=== PATIENT | male | born 1945 | race African-American/Black ===

== ENCOUNTER 2016-10-16 12:03 | Emergency (ER) | payer MEDICARE ==
[~2016-10-16] VITALS: Ht 180.3 cm; Wt 112.0 kg
[~2016-10-16 12:03] MED LIST: AMLO10TA80 PO; AMLODIPINE; ASPI-1035 PO; ATEN-175; ATEN-42 PO; ATOR40TA70; CLOP75TA2 PO; FAMO20TA8 PO; FAMOTIDINE; FERR142T6 PO; GLIM2TAB2; GLIM2TAB2 PO; IRON; ISOS30TA; ISOS30TA47 PO; LIP40 PO; LOSA100T14 PO; LOSARTAN; METF10002; METF10002 PO; SITA100T6; SOTA80TA; SOTA80TA PO
[2016-10-16 19:56] VITALS: BP 149/89
== END 2016-10-16 20:36 | disposition home or self-care (01) ==
LOC: ER 12:04
DX: R51 Headache (principal); E11.9 Type 2 diabetes mellitus without complications; E78.00 Pure hypercholesterolemia, unspecified; I10 Essential (primary) hypertension; I25.2 Old myocardial infarction; Z95.5 Presence of coronary angioplasty implant and graft; Z79.82 Long term (current) use of aspirin
CPT/HCPCS: 70450; 99284

== ENCOUNTER → 2017-02-12 | Day surgery (SDC) | payer MEDICARE ==
[~2017-02-12] VITALS: Ht 180.3 cm; Wt 110.7 kg
[~2017-02-12] MED LIST changes: +APIX2.5T PO; -ASPI-1035 PO; +ASPI-1158 PO; +ASPIRIN/SOD BICARB/CITRIC ACID 324MG TAB EFF ONE; +CARV12.545 PO; +CLOP75TA16 PO; -CLOP75TA2 PO; +FENTANYL CITRATE/PF 50MCG/ML 2ML VIAL ONE; +HEPARIN SODIUM 1,000 UNIT/1ML VIAL IV ONE; +IODIXANOL 320MG/ML 100 ML BOTTLE IV ONE; -ISOS30TA; +ISOS30TA12; +LIDOCAINE HCL 1% 20ML VIAL (Pyxis) INJ ONE; +MIDAZOLAM HCL 2 MG/2 ML VIAL ONE; +SITA100T11; -SITA100T6; +ZOLP5TAB2 PO
== END | disposition home or self-care (01) ==
LOC: CCL 06:46
PROVIDERS: ATTEND Specialist
DX: I25.10 Atherosclerotic heart disease of native coronary artery without angina pectoris (principal); I73.9 Peripheral vascular disease, unspecified; G47.33 Obstructive sleep apnea (adult) (pediatric); I11.9 Hypertensive heart disease without heart failure; E66.9 Obesity, unspecified; I48.0 Paroxysmal atrial fibrillation; Z95.5 Presence of coronary angioplasty implant and graft; E78.00 Pure hypercholesterolemia, unspecified; Z53.9 Procedure and treatment not carried out, unspecified reason
CPT/HCPCS: 82962; J1644; J2250; J3010; J3490; Q9967

== ENCOUNTER 2017-02-14 08:20 | Day surgery (SDC) | payer MEDICARE ==
[~2017-02-14] VITALS: Ht 180.3 cm; Wt 110.7 kg
[~2017-02-14 08:20] MED LIST changes: -AMLODIPINE; -ASPI-1158 PO; -ASPIRIN/SOD BICARB/CITRIC ACID 324MG TAB EFF ONE; -ATEN-175; -ATOR40TA70; -CARV12.545 PO; -CLOP75TA16 PO; -FAMO20TA8 PO; -FAMOTIDINE; -FENTANYL CITRATE/PF 50MCG/ML 2ML VIAL ONE; -GLIM2TAB2; -HEPARIN SODIUM 1,000 UNIT/1ML VIAL IV ONE; -IODIXANOL 320MG/ML 100 ML BOTTLE IV ONE; -IRON; -ISOS30TA12; -LIDOCAINE HCL 1% 20ML VIAL (Pyxis) INJ ONE; -LOSARTAN; -METF10002; -MIDAZOLAM HCL 2 MG/2 ML VIAL ONE; -SITA100T11; -SOTA80TA; -ZOLP5TAB2 PO
[2017-02-14] MEDS ORDERED: ASPIRIN/SOD BICARB/CITRIC ACID 324MG TAB EFF ONE (09:19)
[2017-02-14] MEDS ORDERED: MIDAZOLAM HCL 2 MG/2 ML VIAL ONE ×2 (09:31→09:48)
[2017-02-14] MEDS ORDERED: FENTANYL CITRATE/PF 50MCG/ML 2ML VIAL ONE (09:32)
[2017-02-14] MEDS ORDERED: HEPARIN SODIUM 1,000 UNIT/1ML VIAL IV ONE (09:33)
[2017-02-14] MEDS ORDERED: ATROPINE SULFATE 0.1MG/ML 10ML DISP.SYRIN ONE (09:38)
[2017-02-14] MEDS ORDERED: IODIXANOL 320MG/ML 100 ML BOTTLE IV ONE (10:29)
[2017-02-14] MEDS ORDERED: ATROPINE SULFATE 1MG/10ML SYR IV PRN (11:00)
[2017-02-14] MEDS ORDERED: ONDANSETRON HCL 4MG/2ML VIAL IV PRN (11:00)
[2017-02-14] MEDS ORDERED: MORPHINE SULFATE 2 MG/ML CPJ (NOT FOR IM USE) IV PRN (11:00)
[2017-02-14] MEDS ORDERED: ACETAMINOPHEN 325MG TABLET PO PRN (11:00)
[2017-02-14] MEDS ORDERED: SODIUM CHLORIDE 0.45% 1,000 ML IV ONE (11:00)
[2017-02-14] MEDS ORDERED: NITROGLYCERIN 50MCG/ML 10ML VIAL (CATH LAB) IV ONE (14:17)
[2017-02-14] MEDS ORDERED: NICARDIPINE 100MCG/ML 10ML VIAL (CATH LAB) IV ONE (14:17)
== END 2017-02-14 13:55 | disposition home or self-care (01) ==
LOC: CCL 08:20
PROVIDERS: ATTEND Specialist
DX: I25.10 Atherosclerotic heart disease of native coronary artery without angina pectoris (principal); I73.89 Other specified peripheral vascular diseases
CPT/HCPCS: 82962; 93458; 99152; 99153; C1769; C1887; C1893; J1644; J2250; J3010; J3490; Q9967; J0461

== ENCOUNTER 2017-03-25 07:24 | Inpatient (IN) | payer MEDICARE ==
[~2017-03-25] VITALS: Ht 180.3 cm; Wt 99.8 kg
[2017-03-25] MEDS ORDERED: SODIUM CHLORIDE 0.9% 1,000 ML IV ONE (07:50)
[2017-03-25 08:29] LABS: BASOPHILS % 1.2 % (0.0-2.0); EOSINOPHILS % 1.4 % (0.0-5.0); HEMATOCRIT. 31.9 % (42.0-52.0); HEMOGLOBIN. 10.4 g/dL (14.0-18.0); LYMPHOCYTES % 9.3 % (20.0-50.0); MEAN CORPUSCULAR HEMOGLOBIN 29.7 pg (28.0-32.0); MEAN PLATELET VOLUME 8.9 fl (7.4-10.4); MONOCYTES % 4.9 % (2.0-8.0); NEUTROPHILS % 83.2 % (40.0-76.0); PLATELET 276 x1000/uL (130-400); RED CELL DISTRIBUTION WIDTH 15.7 % (11.6-14.6)
[2017-03-25 08:35] LABS: INR 1.2; PROTHROMBIN TIME 12.8 sec (9.4-11.6)
[2017-03-25 08:45] LABS: CARBON DIOXIDE 28 mEq/L (21-32); CHLORIDE 106 mEq/L (98-107); TROPONIN I 0.11 ng/mL (0.00-0.04)
[2017-03-25] MEDS ORDERED: DEXTROSE 50% WATER 50ML SYRINGE IV ONE ×2 (08:45→11:45)
[2017-03-25] MEDS ORDERED: PIPERACILLIN/TAZOBACTAM 3.375GM/50ML PREMIX IV ONE (09:45)
[2017-03-25] MEDS ORDERED: SODIUM CHLORIDE 0.9% 1000ML BAG (SEPSIS BOLUS) IV ONE (09:45)
[2017-03-25] MEDS ORDERED: ACETAMINOPHEN 325MG TABLET PO PRN (11:00)
[2017-03-25] MEDS ORDERED: MAGNESIUM/ALUMINUM HYDROXIDE/SIMETHICONE 30ML UDC PO PRN (11:00)
[2017-03-25] MEDS ORDERED: DOCUSATE SODIUM 100MG CAPSULE PO PRN (11:00)
[2017-03-25] MEDS ORDERED: ZOLPIDEM TARTRATE 5MG TABLET PO PRN (11:00)
[2017-03-25] MEDS ORDERED: GUAIFENESIN 200MG/10ML SUGAR FREE UDC PO PRN (11:00)
[2017-03-25] MEDS ORDERED: TRAMADOL 50MG TABLET PO PRN (11:00)
[2017-03-25] MEDS ORDERED: NA PHOS,M-B/NA PHOS,DI-BA ENEMA 118ML PR PRN (11:00)
[2017-03-25] MEDS ORDERED: ONDANSETRON HCL 4MG/2ML VIAL IV PRN (11:00)
[2017-03-25] MEDS ORDERED: CLONIDINE 0.1MG TABLET PO PRN ×2 (11:00)
[2017-03-25] MEDS ORDERED: NITROGLYCERIN 0.4MG TABLET SL SL PRN (11:00)
[2017-03-25] MEDS ORDERED: LEVOFLOXACIN 500MG PREMIX 100 ML IV SCH (11:00)
[2017-03-25] MEDS ORDERED: MORPHINE SULFATE 10 MG/ML CPJ IV PRN (11:00)
[2017-03-25] MEDS ORDERED: LORAZEPAM 2MG/ML CPJ IV PRN (11:00)
[2017-03-25] MEDS ORDERED: DIPHENHYDRAMINE 50MG/ML VIAL IV PRN (11:00)
[2017-03-25] MEDS ORDERED: IPRATROPIUM/ALBUTEROL 0.5-3(2.5)MG/3ML NEB INH PRN (11:00)
[2017-03-25] MEDS: VANCOMYCIN 1 G PREMIX 200 ML IV SCH (11:06)
[2017-03-25] MEDS ORDERED: DEXT 5%/0.45% NACL 1000ML 1,000 ML IV SCH (11:18)
[2017-03-25 11:45] LABS: GLUCOSE URINE NEGATIVE (NEGATIVE); KETONES URINE TRACE (NEGATIVE); LEUKOCYTE ESTERASE URINE NEGATIVE (NEGATIVE); NITRITE URINE NEGATIVE (NEGATIVE); OCCULT BLOOD URINE NEGATIVE (NEGATIVE); PROTEIN URINE TRACE (NEGATIVE); SPECIFIC GRAVITY URINE 1.018 (1.005-1.030)
[2017-03-25 11:54] LABS: CLARITY URINE CLEAR (CLEAR); COLOR URINE YELLOW (YELLOW)
[2017-03-25 11:58] LABS: *AMPHETAMINES SCREEN URINE NEGATIVE (NEGATIVE); *BARBITURATES SCREEN URINE NEGATIVE (NEGATIVE); *BENZODIAZEPINES SCREEN URINE NEGATIVE (NEGATIVE); *COCAINE SCREEN URINE NEGATIVE (NEGATIVE); CANNABINOID URINE SCREEN NEGATIVE (NEGATIVE); METHADONE URINE SCREEN NEGATIVE (NEGATIVE); OPIATES URINE SCREEN PRESUMTIVE POSITIVE (NEGATIVE); PHENCYCLIDINE URINE SCREEN NEGATIVE (NEGATIVE)
[2017-03-25 12:01] LABS: T4 FREE 1.29 ng/dL (0.76-1.46)
[2017-03-25 12:16] LABS: FOLIC ACID (FOLATE) SERUM 6.8 ng/mL (>5.38)
[2017-03-25 13:00] VITALS: BP 157/73
[2017-03-25] MEDS ORDERED: CARV12.545 PO (13:43)
[2017-03-25] MEDS ORDERED: ZOLP5TAB2 PO (13:43)
[2017-03-25] MEDS: CARVEDILOL 12.5MG TABLET PO SCH (15:26)
[2017-03-25] MEDS: AMIODARONE HCL 200 MG TABLET PO SCH ×2 (15:26→20:58)
[2017-03-25] MEDS: DEXT 5%/0.9% NACL 1,000 ML IV SCH (15:26)
[2017-03-25] MEDS: CEFTRIAXONE 1 G PREMIX 50 ML IV SCH (15:26)
[2017-03-25] MEDS: AMLODIPINE 2.5MG TABLET PO SCH ×2 (15:27→20:58)
[2017-03-25 16:00] VITALS: BP 145/69
[2017-03-25 16:58] LABS: CREATINE KINASE MB FRACTION 4.5 ng/mL (0.5-3.6); TROPONIN I 0.1 ng/mL (0.00-0.04)
[2017-03-25] MEDS ORDERED: APIXABAN 2.5 MG TABLET PO SCH (17:00)
[2017-03-25] MEDS ORDERED: DEXTROSE 50% WATER 50ML SYRINGE IV PRN (17:15)
[2017-03-25] MEDS: INSULIN LISPRO 100 UNITS/ML SUBCUT SCH ×2 (17:50→21:00)
[2017-03-25] MEDS: BLOOD SUGAR DIAGNOSTIC STRIP TEST SCH ×2 (17:51→21:34)
[2017-03-25] MEDS: LEVOFLOXACIN 500MG PREMIX 100 ML IV SCH (18:09)
[2017-03-25 20:00] VITALS: BP 122/52
[2017-03-25] MEDS: FAMOTIDINE 20MG/2ML VIAL IV SCH (20:57)
[2017-03-25] MEDS: ATORVASTATIN CALCIUM 10MG TABLET PO SCH (20:58)
[2017-03-25] MEDS ORDERED: METOPROLOL TARTRATE 25MG TABLET PO SCH (21:00)
[2017-03-26] VITALS: BP 125/68
[2017-03-26] MEDS: DEXT 5%/0.9% NACL 1,000 ML IV SCH ×2 (01:12→12:36)
[2017-03-26 04:00] VITALS: BP 130/71
[2017-03-26] MEDS: BLOOD SUGAR DIAGNOSTIC STRIP TEST SCH ×4 (06:51→21:21)
[2017-03-26] MEDS: INSULIN LISPRO 100 UNITS/ML SUBCUT SCH ×4 (07:42→21:00)
[2017-03-26 07:56] LABS: BASOPHILS % 1.2 % (0.0-2.0); EOSINOPHILS % 2.1 % (0.0-5.0); HEMATOCRIT. 30.6 % (42.0-52.0); HEMOGLOBIN. 9.9 g/dL (14.0-18.0); LYMPHOCYTES % 10.6 % (20.0-50.0); MEAN CORPUSCULAR HEMOGLOBIN 29.5 pg (28.0-32.0); MEAN CORPUSCULAR VOLUME 90.9 fL (80.0-94.0); MEAN PLATELET VOLUME 8.3 fl (7.4-10.4); MONOCYTES % 7.3 % (2.0-8.0); NEUTROPHILS % 78.8 % (40.0-76.0); PLATELET 302 x1000/uL (130-400); RED BLOOD CELL COUNT 3.37 mill/uL (4.7-6.1); RED CELL DISTRIBUTION WIDTH 15.7 % (11.6-14.6)
[2017-03-26 08:00] VITALS: BP 121/67
[2017-03-26 08:15] LABS: CARBON DIOXIDE 28 mEq/L (21-32); CHLORIDE 108 mEq/L (98-107); HDL CHOLESTEROL 32 mg/dL (40-59); LDL CHOLESTEROL 32 mg/dL (5-100); TROPONIN I 0.09 ng/mL (0.00-0.04)
[2017-03-26] MEDS: CARVEDILOL 12.5MG TABLET PO SCH ×2 (08:56→17:00)
[2017-03-26] MEDS: LOSARTAN POTASSIUM 100 MG TABLET PO SCH (08:56)
[2017-03-26] MEDS: FAMOTIDINE 20MG/2ML VIAL IV SCH ×2 (08:56→21:20)
[2017-03-26] MEDS: AMIODARONE HCL 200 MG TABLET PO SCH ×2 (08:57→21:21)
[2017-03-26] MEDS: AMLODIPINE 2.5MG TABLET PO SCH ×2 (08:57→21:00)
[2017-03-26] MEDS: ASPIRIN 325MG EC TABLET PO SCH (08:57)
[2017-03-26] MEDS ORDERED: CEFTRIAXONE 1 G PREMIX 50 ML IV SCH (09:00)
[2017-03-26] MEDS: VANCOMYCIN 1 G PREMIX 200 ML IV SCH (09:18)
[2017-03-26] MEDS ORDERED: SODIUM PHOS,M-BASIC-D-BASIC 15 MM in DEXT 5% WATER 245 ML IV SCH (11:00)
[2017-03-26 12:00] VITALS: BP 125/66
[2017-03-26] MEDS: REPAGLINIDE 1MG TABLET PO SCH ×2 (12:36→18:27)
[2017-03-26] MEDS: CEFTRIAXONE 1 G PREMIX 50 ML IV SCH (13:31)
[2017-03-26 16:00] VITALS: BP 93/50
[2017-03-26] MEDS: LEVOFLOXACIN 500MG PREMIX 100 ML IV SCH (17:42)
[2017-03-26 20:00] VITALS: BP 104/51
[2017-03-26] MEDS: ATORVASTATIN CALCIUM 10MG TABLET PO SCH (21:20)
[2017-03-27] VITALS: BP 138/60
[2017-03-27 04:00] VITALS: BP 124/56
[2017-03-27] MEDS: DEXT 5%/0.9% NACL 1,000 ML IV SCH ×3 (06:15→21:00)
[2017-03-27 07:15] LABS: BASOPHILS % 0.9 % (0.0-2.0); EOSINOPHILS % 3.7 % (0.0-5.0); HEMATOCRIT. 31.1 % (42.0-52.0); LYMPHOCYTES % 12.9 % (20.0-50.0); MEAN CORPUSCULAR HEMOGLOBIN 29.4 pg (28.0-32.0); MEAN CORPUSCULAR VOLUME 91.5 fL (80.0-94.0); MEAN PLATELET VOLUME 8.5 fl (7.4-10.4); NEUTROPHILS % 74.5 % (40.0-76.0); PLATELET 290 x1000/uL (130-400); RED CELL DISTRIBUTION WIDTH 15.7 % (11.6-14.6)
[2017-03-27] MEDS: BLOOD SUGAR DIAGNOSTIC STRIP TEST SCH ×4 (07:46→21:00)
[2017-03-27] MEDS: INSULIN LISPRO 100 UNITS/ML SUBCUT SCH ×4 (07:47→21:00)
[2017-03-27 08:00] VITALS: BP_SYST 125; BP_SYST 126; BP_DIAS 63; BP_DIAS 69
[2017-03-27] MEDS: AMLODIPINE 2.5MG TABLET PO SCH ×3 (08:18→21:58)
[2017-03-27] MEDS: LOSARTAN POTASSIUM 100 MG TABLET PO SCH (08:32)
[2017-03-27] MEDS: REPAGLINIDE 1MG TABLET PO SCH ×3 (08:32→17:59)
[2017-03-27] MEDS: FAMOTIDINE 20MG/2ML VIAL IV SCH ×3 (08:32→22:12)
[2017-03-27] MEDS: CARVEDILOL 12.5MG TABLET PO SCH ×2 (08:32→16:28)
[2017-03-27] MEDS: ASPIRIN 325MG EC TABLET PO SCH (08:32)
[2017-03-27] MEDS: AMIODARONE HCL 200 MG TABLET PO SCH ×2 (08:32→22:03)
[2017-03-27 09:59] LABS: CARBON DIOXIDE 27 mEq/L (21-32); CHLORIDE 110 mEq/L (98-107); PHOSPHORUS 2.5 mg/dL (2.5-4.9); TROPONIN I 0.09 ng/mL (0.00-0.04)
[2017-03-27 12:00] VITALS: BP 126/69
[2017-03-27] MEDS ORDERED: MAGNESIUM 2 G PREMIX 50 ML IV SCH (13:30)
[2017-03-27] MEDS: CEFTRIAXONE 1 G PREMIX 50 ML IV SCH (14:30)
[2017-03-27] MEDS: LEVOFLOXACIN 500MG PREMIX 100 ML IV SCH (14:51)
[2017-03-27] MEDS: MAGNESIUM OXIDE 400MG TABLET PO SCH ×2 (14:54→16:28)
[2017-03-27 16:00] VITALS: BP 121/69
[2017-03-27 20:00] VITALS: BP 108/75
[2017-03-27] MEDS: ATORVASTATIN CALCIUM 10MG TABLET PO SCH (22:03)
[2017-03-28] VITALS: BP 112/56
[2017-03-28] MEDS: DEXT 5%/0.9% NACL 1,000 ML IV SCH (03:15)
[2017-03-28 04:00] VITALS: BP 114/59
[2017-03-28] MEDS: BLOOD SUGAR DIAGNOSTIC STRIP TEST SCH (06:00)
[2017-03-28 06:28] LABS: BASOPHILS % 1.2 % (0.0-2.0); HEMATOCRIT. 28.8 % (42.0-52.0); HEMOGLOBIN. 9.5 g/dL (14.0-18.0); LYMPHOCYTES % 12.8 % (20.0-50.0); MEAN CORPUSCULAR HEMOGLOBIN 30.2 pg (28.0-32.0); MEAN CORPUSCULAR VOLUME 91.6 fL (80.0-94.0); MEAN PLATELET VOLUME 8.4 fl (7.4-10.4); MONOCYTES % 8.1 % (2.0-8.0); NEUTROPHILS % 72.9 % (40.0-76.0); PLATELET 230 x1000/uL (130-400); RED BLOOD CELL COUNT 3.15 mill/uL (4.7-6.1); RED CELL DISTRIBUTION WIDTH 15.6 % (11.6-14.6)
[2017-03-28 08:00] VITALS: BP 145/71
[2017-03-28] MEDS: INSULIN LISPRO 100 UNITS/ML SUBCUT SCH (08:10)
[2017-03-28] MEDS: MAGNESIUM OXIDE 400MG TABLET PO SCH (08:29)
[2017-03-28] MEDS: LOSARTAN POTASSIUM 100 MG TABLET PO SCH (08:29)
[2017-03-28] MEDS: AMLODIPINE 2.5MG TABLET PO SCH (08:29)
[2017-03-28] MEDS: ASPIRIN 325MG EC TABLET PO SCH (08:29)
[2017-03-28] MEDS: REPAGLINIDE 1MG TABLET PO SCH (08:29)
[2017-03-28] MEDS: CARVEDILOL 12.5MG TABLET PO SCH (08:29)
[2017-03-28] MEDS: AMIODARONE HCL 200 MG TABLET PO SCH (08:29)
[2017-03-28 08:33] LABS: CHLORIDE 111 mEq/L (98-107)
[2017-03-28 08:35] LABS: CARBON DIOXIDE 27 mEq/L (21-32); PHOSPHORUS 2.1 mg/dL (2.5-4.9)
[2017-03-28] MEDS ORDERED: MAGNESIUM OXIDE 400MG TABLET PO SCH (10:30)
[2017-03-28] MEDS ORDERED: POTASSIUM-SODIUM PHOSPHATE POWDER PACKET PO SCH (10:30)
[2017-03-28 11:48] VITALS: BP 119/72
== END 2017-03-28 12:40 | disposition home health service (06) | DRG 871 ==
LOC: ENRESERV 09:43 → EDBEDREQTM 10:05 → EDBEDREQ 10:05 → ER 11:03 → 7WST 11:04
PROVIDERS: ADMIT Specialist; ATTEND Internal Medicine
DX: A41.9 Sepsis, unspecified organism (principal); N17.0 Acute kidney failure with tubular necrosis; E44.0 Moderate protein-calorie malnutrition; E11.51 Type 2 diabetes mellitus with diabetic peripheral angiopathy without gangrene; E11.649 Type 2 diabetes mellitus with hypoglycemia without coma; I48.0 Paroxysmal atrial fibrillation; I42.0 Dilated cardiomyopathy; E11.319 Type 2 diabetes mellitus with unspecified diabetic retinopathy without macular edema; I11.0 Hypertensive heart disease with heart failure; D50.9 Iron deficiency anemia, unspecified; E66.9 Obesity, unspecified; E78.00 Pure hypercholesterolemia, unspecified; E78.5 Hyperlipidemia, unspecified; E86.0 Dehydration; G47.33 Obstructive sleep apnea (adult) (pediatric); I25.10 Atherosclerotic heart disease of native coronary artery without angina pectoris; I25.5 Ischemic cardiomyopathy; I50.9 Heart failure, unspecified; Z79.84 Long term (current) use of oral hypoglycemic drugs; Z82.49 Family history of ischemic heart disease and other diseases of the circulatory system; Z87.891 Personal history of nicotine dependence; Z95.1 Presence of aortocoronary bypass graft; I25.2 Old myocardial infarction; Z95.5 Presence of coronary angioplasty implant and graft; Z68.30 Body mass index [BMI] 30.0-30.9, adult; Z88.8 Allergy status to other drugs, medicaments and biological substances; Z79.899 Other long term (current) drug therapy
CPT/HCPCS: 36415; 71010; 76700; 80048; 80053; 80061; 80305; 81001; 82533; 82550; 82553; 82607; 82746; 82962; 83036; 83540; 83550; 83605; 83735; 83880; 84100; 84439; 84443; 84484; 84681; 85025; 85610; 87040; 87086; 93005; 93306; 93970; 93971; 96361; 96365; 96366; 97162; 97166; 99291; J0696; J1956; J2543; J3370; J3475; J3490; J7030; J7042; J7060

== ENCOUNTER 2018-01-10 09:35 | Inpatient (IN) | payer MEDICARE ==
[~2018-01-10] VITALS: Ht 180.3 cm; Wt 103.2 kg
[~2018-01-10 09:35] MED LIST changes: -ATEN-42 PO; +CARV12.545 PO; -FERR142T6 PO; -ISOS30TA47 PO; -LOSA100T14 PO; -METF10002 PO; +METF10004 PO; -SOTA80TA PO; +ZOLP5TAB2 PO
[2018-01-10 11:40] VITALS: BP 127/57
[2018-01-10] MEDS ORDERED: LOSA50TA20 MT (12:05)
[2018-01-10] MEDS ORDERED: FERR236T3 MT (12:05)
[2018-01-10] MEDS ORDERED: BUME1TAB4 MT (12:05)
[2018-01-10] MEDS ORDERED: REPA2TAB8 MT (12:05)
[2018-01-10] MEDS ORDERED: AMI2 MT (12:05)
[2018-01-10] MEDS ORDERED: ASPI-1159 MT (12:05)
[2018-01-10 12:08] VITALS: BP 127/57
[2018-01-10] MEDS ORDERED: DEXTROSE 50% WATER 50ML SYRINGE IV PRN (13:00)
[2018-01-10] MEDS: FUROSEMIDE 40MG/4ML VIAL IVP SCH ×2 (15:01→18:05)
[2018-01-10] MEDS: LOSARTAN POTASSIUM 25 MG TABLET PO SCH ×2 (15:01→21:24)
[2018-01-10] MEDS: ASPIRIN 81MG EC TABLET PO SCH (15:01)
[2018-01-10 16:00] VITALS: BP 132/65
[2018-01-10 17:28] LABS: CHLORIDE 107 mEq/L (98-107)
[2018-01-10] MEDS: BLOOD SUGAR DIAGNOSTIC STRIP TEST SCH ×2 (17:28→21:19)
[2018-01-10] MEDS: INSULIN LISPRO 100 UNITS/ML SUBCUT SCH ×2 (17:28→21:31)
[2018-01-10 17:29] LABS: BASOPHILS % 0.8 % (0.0-2.0); EOSINOPHILS % 2.2 % (0.0-5.0); HEMATOCRIT. 30.9 % (42.0-52.0); HEMOGLOBIN. 10.1 g/dL (14.0-18.0); LYMPHOCYTES % 14.7 % (20.0-50.0); MEAN CORPUSCULAR HEMOGLOBIN 30.2 pg (28.0-32.0); MEAN CORPUSCULAR VOLUME 92.1 fL (80.0-94.0); MEAN PLATELET VOLUME 8.5 fl (7.4-10.4); MONOCYTES % 6.1 % (2.0-8.0); NEUTROPHILS % 76.2 % (40.0-76.0); PLATELET 91 x1000/uL (130-400); RED BLOOD CELL COUNT 3.36 mill/uL (4.7-6.1); RED CELL DISTRIBUTION WIDTH 22.2 % (11.6-14.6)
[2018-01-10 17:37] LABS: CREATINE KINASE 48 IU/L (39-308)
[2018-01-10 17:43] LABS: CREATINE KINASE MB FRACTION 1.4 ng/mL (0.5-3.6)
[2018-01-10 20:00] VITALS: BP 133/67
[2018-01-10 21:02] LABS: PLATELET ESTIMATE DECREASED
[2018-01-10] MEDS: CARVEDILOL 6.25 MG TABLET PO SCH (21:23)
[2018-01-11] VITALS: BP 122/54
[2018-01-11 04:00] VITALS: BP 134/56
[2018-01-11] MEDS: BLOOD SUGAR DIAGNOSTIC STRIP TEST SCH ×4 (06:39→21:34)
[2018-01-11] MEDS: FUROSEMIDE 40MG/4ML VIAL IVP SCH ×2 (06:43→17:36)
[2018-01-11] MEDS: INSULIN LISPRO 100 UNITS/ML SUBCUT SCH ×4 (06:53→21:31)
[2018-01-11 07:19] LABS: BASOPHILS % 0.7 % (0.0-2.0); EOSINOPHILS % 3.9 % (0.0-5.0); HEMATOCRIT. 30.5 % (42.0-52.0); HEMOGLOBIN. 10.1 g/dL (14.0-18.0); LYMPHOCYTES % 14.5 % (20.0-50.0); MEAN CORPUSCULAR HEMOGLOBIN 30.4 pg (28.0-32.0); MEAN CORPUSCULAR VOLUME 92.1 fL (80.0-94.0); MEAN PLATELET VOLUME 9.2 fl (7.4-10.4); MONOCYTES % 6.9 % (2.0-8.0); PLATELET 135 x1000/uL (130-400); RED BLOOD CELL COUNT 3.32 mill/uL (4.7-6.1); RED CELL DISTRIBUTION WIDTH 21.6 % (11.6-14.6)
[2018-01-11 07:39] LABS: CHLORIDE 108 mEq/L (98-107)
[2018-01-11 08:04] LABS: CREATINE KINASE MB FRACTION 1.1 ng/mL (0.5-3.6); HDL CHOLESTEROL 22 mg/dL (40-59); LDL CHOLESTEROL 104 mg/dL (5-100)
[2018-01-11 08:05] LABS: CREATINE KINASE 34 IU/L (39-308)
[2018-01-11] MEDS: LOSARTAN POTASSIUM 25 MG TABLET PO SCH ×2 (08:59→21:26)
[2018-01-11] MEDS: ASPIRIN 81MG EC TABLET PO SCH (08:59)
[2018-01-11] MEDS: CARVEDILOL 6.25 MG TABLET PO SCH ×2 (08:59→21:27)
[2018-01-11 12:00] VITALS: BP 114/78
[2018-01-11 16:00] VITALS: BP 134/70
[2018-01-11 20:00] VITALS: BP 118/46
[2018-01-11] MEDS: GUAIFENESIN-DM 200MG-20MG/10ML UDC PO PRN (21:26)
[2018-01-12] VITALS: BP 131/49
[2018-01-12] MEDS: GUAIFENESIN-DM 200MG-20MG/10ML UDC PO PRN ×2 (01:41→20:51)
[2018-01-12 04:00] VITALS: BP 132/53
[2018-01-12] MEDS: BLOOD SUGAR DIAGNOSTIC STRIP TEST SCH ×4 (06:14→20:57)
[2018-01-12] MEDS: FUROSEMIDE 40MG/4ML VIAL IVP SCH ×2 (06:15→16:49)
[2018-01-12] MEDS: INSULIN LISPRO 100 UNITS/ML SUBCUT SCH ×4 (07:26→21:39)
[2018-01-12 08:00] VITALS: BP 143/64
[2018-01-12] MEDS: LOSARTAN POTASSIUM 25 MG TABLET PO SCH ×2 (09:26→20:55)
[2018-01-12] MEDS: CARVEDILOL 6.25 MG TABLET PO SCH ×2 (09:26→20:52)
[2018-01-12] MEDS: ASPIRIN 81MG EC TABLET PO SCH (09:26)
[2018-01-12 12:00] VITALS: BP 124/57
[2018-01-12 13:12] LABS: CHLORIDE 105 mEq/L (98-107)
[2018-01-12 16:00] VITALS: BP 143/66
[2018-01-12] MEDS ORDERED: POTASSIUM CHLORIDE 20MEQ TABLET SR PO NR (18:06)
[2018-01-12 20:00] VITALS: BP 121/50
[2018-01-13] VITALS: BP 132/79
[2018-01-13 04:00] VITALS: BP 132/54
[2018-01-13] MEDS: FUROSEMIDE 40MG/4ML VIAL IVP SCH ×2 (06:29→17:45)
[2018-01-13] MEDS: INSULIN LISPRO 100 UNITS/ML SUBCUT SCH ×4 (06:32→20:38)
[2018-01-13] MEDS: BLOOD SUGAR DIAGNOSTIC STRIP TEST SCH ×4 (06:32→20:33)
[2018-01-13 07:30] LABS: CHLORIDE 108 mEq/L (98-107)
[2018-01-13 07:56] VITALS: BP 127/63
[2018-01-13] MEDS: ASPIRIN 81MG EC TABLET PO SCH (09:10)
[2018-01-13] MEDS: LOSARTAN POTASSIUM 25 MG TABLET PO SCH ×2 (09:10→20:33)
[2018-01-13] MEDS: CARVEDILOL 6.25 MG TABLET PO SCH ×2 (09:11→20:32)
[2018-01-13 12:30] VITALS: BP 120/67
[2018-01-13] MEDS ORDERED: POTASSIUM CHLORIDE 20MEQ TABLET SR PO NR (12:30)
[2018-01-13] MEDS: GUAIFENESIN-DM 200MG-20MG/10ML UDC PO PRN ×2 (12:34→17:45)
[2018-01-13] MEDS ORDERED: FUROSEMIDE 40MG/4ML VIAL IVP SCH (15:00)
[2018-01-13] MEDS: AMIODARONE HCL 200 MG TABLET PO SCH (15:29)
[2018-01-13] MEDS: ENOXAPARIN 40MG/0.4ML SYR SUBCUT SCH (15:30)
[2018-01-13 16:30] VITALS: BP 141/61
[2018-01-13] MEDS: POTASSIUM CHLORIDE 20MEQ TABLET SR PO SCH (17:00)
[2018-01-13 20:00] VITALS: BP 133/53
[2018-01-13] MEDS: GUAIFENESIN 600MG ER TABLET PO SCH (20:32)
[2018-01-14] VITALS: BP 121/50
[2018-01-14] MEDS: ZOLPIDEM TARTRATE 5MG TABLET PO PRN ×2 (00:26→22:17)
[2018-01-14 04:00] VITALS: BP 117/75
[2018-01-14] MEDS: BLOOD SUGAR DIAGNOSTIC STRIP TEST SCH ×4 (06:22→21:00)
[2018-01-14] MEDS: FUROSEMIDE 40MG/4ML VIAL IVP SCH ×3 (06:33→17:53)
[2018-01-14 06:46] LABS: BASOPHILS % 0.6 % (0.0-2.0); EOSINOPHILS % 2.8 % (0.0-5.0); HEMATOCRIT. 32.9 % (42.0-52.0); HEMOGLOBIN. 10.8 g/dL (14.0-18.0); LYMPHOCYTES % 14.4 % (20.0-50.0); MEAN CORPUSCULAR HEMOGLOBIN 30.7 pg (28.0-32.0); MEAN CORPUSCULAR VOLUME 93.6 fL (80.0-94.0); MEAN PLATELET VOLUME 8.9 fl (7.4-10.4); MONOCYTES % 5.7 % (2.0-8.0); NEUTROPHILS % 76.5 % (40.0-76.0); PLATELET 158 x1000/uL (130-400); RED BLOOD CELL COUNT 3.51 mill/uL (4.7-6.1); RED CELL DISTRIBUTION WIDTH 22.2 % (11.6-14.6)
[2018-01-14 06:55] LABS: CHLORIDE 108 mEq/L (98-107)
[2018-01-14] MEDS: INSULIN LISPRO 100 UNITS/ML SUBCUT SCH ×4 (07:25→21:00)
[2018-01-14 08:30] VITALS: BP 127/68
[2018-01-14] MEDS: GUAIFENESIN 600MG ER TABLET PO SCH ×3 (09:05→22:30)
[2018-01-14] MEDS: POTASSIUM CHLORIDE 20MEQ TABLET SR PO SCH ×2 (09:05→17:54)
[2018-01-14] MEDS: AMIODARONE HCL 200 MG TABLET PO SCH (09:06)
[2018-01-14] MEDS: CARVEDILOL 6.25 MG TABLET PO SCH (09:06)
[2018-01-14] MEDS: LOSARTAN POTASSIUM 25 MG TABLET PO SCH ×2 (09:06→21:00)
[2018-01-14] MEDS: ENOXAPARIN 40MG/0.4ML SYR SUBCUT SCH (09:06)
[2018-01-14] MEDS: ASPIRIN 81MG EC TABLET PO SCH (09:08)
[2018-01-14] MEDS ORDERED: ONDANSETRON HCL 4MG/2ML VIAL IV PRN (11:00)
[2018-01-14] MEDS ORDERED: POTASSIUM CHLORIDE 20MEQ TABLET SR PO SCH (11:00)
[2018-01-14] MEDS ORDERED: MAGNESIUM 2 G PREMIX 50 ML IV SCH (12:00)
[2018-01-14] MEDS ORDERED: MAGNESIUM SULFATE 2 GM in DEXTROSE 5% WATER 50 ML IV SCH (12:00)
[2018-01-14 12:30] VITALS: BP 140/59
[2018-01-14 15:34] VITALS: BP 140/73
[2018-01-14] MEDS ORDERED: PANTOPRAZOLE 40MG DR TABLET PO NR (16:15)
[2018-01-14 16:53] LABS: T4 FREE 1.73 ng/dL (0.76-1.46)
[2018-01-14 20:00] VITALS: BP 135/70
[2018-01-14] MEDS: CARVEDILOL 3.125 MG TABLET PO SCH (21:00)
[2018-01-14] MEDS: FAMOTIDINE 20MG/2ML VIAL IV SCH (22:17)
[2018-01-14] MEDS: FLUTICASONE PROPIONATE 50MCG/SPRAY BOTTLE BOTHNSTRLS SCH (22:18)
[2018-01-15] VITALS (7 sets, daily range): BP systolic 114–143; BP diastolic 51–70
[2018-01-15] MEDS: BLOOD SUGAR DIAGNOSTIC STRIP TEST SCH ×4 (07:08→20:56)
[2018-01-15] MEDS ORDERED: PANTOPRAZOLE 40MG DR TABLET PO SCH (07:10)
[2018-01-15 07:42] LABS: CHLORIDE 109 mEq/L (98-107)
[2018-01-15] MEDS ORDERED: IPRATROPIUM/ALBUTEROL 0.5-3(2.5)MG/3ML NEB HHN PRN (08:30)
[2018-01-15 08:47] LABS: BASOPHILS % 0.6 % (0.0-2.0); EOSINOPHILS % 2.6 % (0.0-5.0); HEMATOCRIT. 31.8 % (42.0-52.0); HEMOGLOBIN. 10.4 g/dL (14.0-18.0); LYMPHOCYTES % 14.3 % (20.0-50.0); MEAN CORPUSCULAR HEMOGLOBIN 30.6 pg (28.0-32.0); MEAN CORPUSCULAR VOLUME 93.3 fL (80.0-94.0); MONOCYTES % 5.9 % (2.0-8.0); NEUTROPHILS % 76.6 % (40.0-76.0); RED BLOOD CELL COUNT 3.41 mill/uL (4.7-6.1); RED CELL DISTRIBUTION WIDTH 21.6 % (11.6-14.6)
[2018-01-15] MEDS ORDERED: GUAIFENESIN 600MG ER TABLET PO SCH (09:00)
[2018-01-15] MEDS: FUROSEMIDE 40MG/4ML VIAL IVP SCH ×3 (09:24→17:21)
[2018-01-15] MEDS: CARVEDILOL 3.125 MG TABLET PO SCH ×2 (09:24→20:26)
[2018-01-15] MEDS: LOSARTAN POTASSIUM 25 MG TABLET PO SCH ×2 (09:24→20:25)
[2018-01-15] MEDS: POTASSIUM CHLORIDE 20MEQ TABLET SR PO SCH ×2 (09:25→17:21)
[2018-01-15] MEDS: ENOXAPARIN 40MG/0.4ML SYR SUBCUT SCH (09:25)
[2018-01-15] MEDS: ASPIRIN 81MG EC TABLET PO SCH (09:25)
[2018-01-15] MEDS: AZITHROMYCIN 500 MG in DEXT 5% WATER 250 ML IV SCH ×2 (10:00→14:58)
[2018-01-15] MEDS: CEFTRIAXONE 2 G in DEXTROSE 5% WATER 50 ML IV SCH (10:28)
[2018-01-15] MEDS: FAMOTIDINE 20MG/2ML VIAL IV SCH ×2 (10:29→20:25)
[2018-01-15] MEDS: FLUTICASONE PROPIONATE 50MCG/SPRAY BOTTLE BOTHNSTRLS SCH ×2 (10:32→20:25)
[2018-01-15 11:01] LABS: CLARITY URINE CLEAR (CLEAR); COLOR URINE DARK YELLOW (YELLOW); KETONES URINE NEGATIVE (NEGATIVE); LEUKOCYTE ESTERASE URINE NEGATIVE (NEGATIVE); NITRITE URINE NEGATIVE (NEGATIVE); OCCULT BLOOD URINE NEGATIVE (NEGATIVE); PH URINE 5.5 (4.5-8.0); PROTEIN URINE NEGATIVE (NEGATIVE); SPECIFIC GRAVITY URINE 1.021 (1.005-1.030); UROBILINOGEN URINE >8.0 E.U./dL (0.2-1.0)
[2018-01-15] MEDS: INSULIN LISPRO 100 UNITS/ML SUBCUT SCH ×3 (13:18→20:56)
[2018-01-15] MEDS ORDERED: LIDOCAINE HCL 1% 20ML VIAL (Pyxis) INJ ONE (13:29)
[2018-01-15] MEDS: IPRATROPIUM/ALBUTEROL 0.5-3(2.5)MG/3ML NEB HHN SCH ×3 (14:41→21:05)
[2018-01-15] MEDS: ACETYLCYSTEINE 100MG/ML 10% VIAL 4ML INH SCH (14:42)
[2018-01-15 16:06] LABS: *AMPHETAMINES SCREEN URINE NEGATIVE (NEGATIVE); *BARBITURATES SCREEN URINE NEGATIVE (NEGATIVE); CANNABINOID URINE SCREEN NEGATIVE (NEGATIVE); OPIATES URINE SCREEN NEGATIVE (NEGATIVE); PHENCYCLIDINE URINE SCREEN NEGATIVE (NEGATIVE)
[2018-01-15 16:07] LABS: *BENZODIAZEPINES SCREEN URINE NEGATIVE (NEGATIVE); *COCAINE SCREEN URINE NEGATIVE (NEGATIVE); METHADONE URINE SCREEN NEGATIVE (NEGATIVE)
[2018-01-15] MEDS: ZOLPIDEM TARTRATE 5MG TABLET PO PRN (20:25)
[2018-01-15] MEDS: ENOXAPARIN 30MG/0.3ML SYR SUBCUT SCH (20:27)
[2018-01-15] MEDS: GUAIFENESIN 600MG ER TABLET PO SCH (20:41)
[2018-01-16] VITALS: BP 135/62
[2018-01-16] MEDS: ACETYLCYSTEINE 100MG/ML 10% VIAL 4ML INH SCH ×3 (00:41→15:49)
[2018-01-16] MEDS: IPRATROPIUM/ALBUTEROL 0.5-3(2.5)MG/3ML NEB HHN SCH ×5 (00:41→20:55)
[2018-01-16] MEDS: ACETAMINOPHEN 325MG TABLET PO PRN ×2 (03:59→21:17)
[2018-01-16 04:00] VITALS: BP 141/65
[2018-01-16] MEDS: INSULIN LISPRO 100 UNITS/ML SUBCUT SCH ×4 (06:03→21:00)
[2018-01-16] MEDS: BLOOD SUGAR DIAGNOSTIC STRIP TEST SCH ×4 (06:03→21:30)
[2018-01-16 08:00] VITALS: BP 135/63
[2018-01-16] MEDS: POTASSIUM CHLORIDE 20MEQ TABLET SR PO SCH ×2 (09:02→16:33)
[2018-01-16] MEDS: ASPIRIN 81MG EC TABLET PO SCH (09:02)
[2018-01-16] MEDS: CARVEDILOL 3.125 MG TABLET PO SCH ×2 (09:02→21:18)
[2018-01-16] MEDS: FAMOTIDINE 20MG/2ML VIAL IV SCH ×2 (09:02→21:16)
[2018-01-16] MEDS: FUROSEMIDE 40MG/4ML VIAL IVP SCH ×3 (09:02→16:33)
[2018-01-16] MEDS: LOSARTAN POTASSIUM 25 MG TABLET PO SCH ×2 (09:02→21:17)
[2018-01-16] MEDS: CEFTRIAXONE 2 G in DEXTROSE 5% WATER 50 ML IV SCH (09:02)
[2018-01-16] MEDS: FLUTICASONE PROPIONATE 50MCG/SPRAY BOTTLE BOTHNSTRLS SCH ×2 (09:02→21:18)
[2018-01-16] MEDS: ENOXAPARIN 30MG/0.3ML SYR SUBCUT SCH ×2 (09:03→21:16)
[2018-01-16] MEDS: GUAIFENESIN 600MG ER TABLET PO SCH ×2 (09:05→21:17)
[2018-01-16] MEDS: AZITHROMYCIN 500 MG in DEXT 5% WATER 250 ML IV SCH (10:54)
[2018-01-16 11:35] VITALS: BP 138/65
[2018-01-16] MEDS ORDERED: POTASSIUM CHLORIDE 20MEQ TABLET SR PO NR (11:45)
[2018-01-16] MEDS ORDERED: MAGNESIUM 1 G PREMIX 100 ML IV NR (13:00)
[2018-01-16] MEDS: SPIRONOLACTONE 25MG TABLET PO SCH (13:22)
[2018-01-16 14:47] LABS: BASOPHILS % 0.7 % (0.0-2.0); EOSINOPHILS % 2.1 % (0.0-5.0); HEMATOCRIT. 32.7 % (42.0-52.0); HEMOGLOBIN. 10.6 g/dL (14.0-18.0); LYMPHOCYTES % 12.1 % (20.0-50.0); MEAN CORPUSCULAR HEMOGLOBIN 30.5 pg (28.0-32.0); MEAN PLATELET VOLUME 8.3 fl (7.4-10.4); MONOCYTES % 5.9 % (2.0-8.0); NEUTROPHILS % 79.2 % (40.0-76.0); PLATELET 149 x1000/uL (130-400); RED BLOOD CELL COUNT 3.48 mill/uL (4.7-6.1); RED CELL DISTRIBUTION WIDTH 21.9 % (11.6-14.6)
[2018-01-16 14:50] LABS: CHLORIDE 106 mEq/L (98-107)
[2018-01-16 16:00] VITALS: BP 120/69
[2018-01-16 20:00] VITALS: BP 144/63
[2018-01-16 20:12] LABS: TOTAL IRON BINDING CAPACITY 179 ug/dL (250-450)
[2018-01-16 20:34] LABS: FERRITIN 69 ng/mL (22-322)
[2018-01-16 20:41] LABS: VITAMIN B12 SERUM >2000 pg/mL pg/mL (211-911)
[2018-01-16 20:45] LABS: HEPATITIS B SURFACE ANTIGEN NEGATIVE
[2018-01-16 21:13] LABS: HEPATITIS B CORE AB IGM NEGATIVE
[2018-01-16 21:15] LABS: HEPATITIS A AB IGM NEGATIVE (NEGATIVE)
[2018-01-16] MEDS: ZOLPIDEM TARTRATE 5MG TABLET PO PRN (21:17)
[2018-01-17] VITALS: BP 135/70
[2018-01-17] MEDS: IPRATROPIUM/ALBUTEROL 0.5-3(2.5)MG/3ML NEB HHN SCH ×3 (01:00→08:31)
[2018-01-17 04:00] VITALS: BP 142/64
[2018-01-17] MEDS: ACETYLCYSTEINE 100MG/ML 10% VIAL 4ML INH SCH ×2 (04:21→08:31)
[2018-01-17] MEDS: INSULIN LISPRO 100 UNITS/ML SUBCUT SCH ×2 (07:03→12:40)
[2018-01-17] MEDS: BLOOD SUGAR DIAGNOSTIC STRIP TEST SCH ×2 (07:04→12:41)
[2018-01-17 07:26] LABS: CHLORIDE 109 mEq/L (98-107)
[2018-01-17 07:30] VITALS: BP 137/62
[2018-01-17 07:40] LABS: BASOPHILS % 0.6 % (0.0-2.0); EOSINOPHILS % 2.7 % (0.0-5.0); HEMATOCRIT. 30.3 % (42.0-52.0); HEMOGLOBIN. 9.8 g/dL (14.0-18.0); LYMPHOCYTES % 13.2 % (20.0-50.0); MEAN CORPUSCULAR HEMOGLOBIN 30.5 pg (28.0-32.0); MEAN PLATELET VOLUME 8.1 fl (7.4-10.4); MONOCYTES % 5.6 % (2.0-8.0); NEUTROPHILS % 77.9 % (40.0-76.0); PLATELET 94 x1000/uL (130-400); RED BLOOD CELL COUNT 3.22 mill/uL (4.7-6.1)
[2018-01-17] MEDS ORDERED: POTASSIUM CHLORIDE 20MEQ TABLET SR PO NR (09:15)
[2018-01-17] MEDS: FUROSEMIDE 40MG/4ML VIAL IVP SCH (09:34)
[2018-01-17] MEDS: POTASSIUM CHLORIDE 20MEQ TABLET SR PO SCH (09:35)
[2018-01-17] MEDS: ASPIRIN 81MG EC TABLET PO SCH (09:35)
[2018-01-17] MEDS: GUAIFENESIN 600MG ER TABLET PO SCH (09:35)
[2018-01-17] MEDS: LOSARTAN POTASSIUM 25 MG TABLET PO SCH (09:35)
[2018-01-17] MEDS: CARVEDILOL 3.125 MG TABLET PO SCH (09:35)
[2018-01-17] MEDS: SPIRONOLACTONE 25MG TABLET PO SCH (09:35)
[2018-01-17] MEDS: FAMOTIDINE 20MG/2ML VIAL IV SCH (09:35)
[2018-01-17] MEDS: CEFTRIAXONE 2 G in DEXTROSE 5% WATER 50 ML IV SCH (09:36)
[2018-01-17] MEDS: ENOXAPARIN 30MG/0.3ML SYR SUBCUT SCH (09:36)
[2018-01-17] MEDS: FLUTICASONE PROPIONATE 50MCG/SPRAY BOTTLE BOTHNSTRLS SCH (09:38)
[2018-01-17] MEDS ORDERED: MAGNESIUM SULFATE 2 GM in DEXTROSE 5% WATER 50 ML IV NR (10:00)
[2018-01-17] MEDS ORDERED: POTASSIUM CHLORIDE 20MEQ TABLET SR PO ONE (10:30)
[2018-01-17] MEDS ORDERED: MAGNESIUM 2 G PREMIX 50 ML IV ONE (10:30)
[2018-01-17 12:00] VITALS: BP 142/66
[2018-01-17] MEDS ORDERED: ASCORBIC ACID 500 MG TABLET PO SCH (12:00)
[2018-01-17] MEDS ORDERED: FERROUS SULFATE 325MG TABLET PO SCH (12:40)
[2018-01-17 12:43] VITALS: BP 142/66
== END 2018-01-17 16:32 | disposition home or self-care (01) | DRG 871 ==
LOC: 8WST 09:35
PROVIDERS: ADMIT Specialist; ATTEND Specialist
PROC: 02HV33Z Insertion of Infusion Device into Superior Vena Cava, Percutaneous Approach (ICD-10-PCS; principal; 2018-01-15)
PROC: B5181ZA Fluoroscopy of Superior Vena Cava using Low Osmolar Contrast, Guidance (ICD-10-PCS; 2018-01-15)
PROC: B548ZZA Ultrasonography of Superior Vena Cava, Guidance (ICD-10-PCS; 2018-01-15)
DX: A41.9 Sepsis, unspecified organism (principal); J96.00 Acute respiratory failure, unspecified whether with hypoxia or hypercapnia; E43 Unspecified severe protein-calorie malnutrition; I50.33 Acute on chronic diastolic (congestive) heart failure; J18.1 Lobar pneumonia, unspecified organism; I48.0 Paroxysmal atrial fibrillation; G47.33 Obstructive sleep apnea (adult) (pediatric); I65.29 Occlusion and stenosis of unspecified carotid artery; I11.0 Hypertensive heart disease with heart failure; E87.6 Hypokalemia; I25.10 Atherosclerotic heart disease of native coronary artery without angina pectoris; D50.9 Iron deficiency anemia, unspecified; D69.6 Thrombocytopenia, unspecified; E78.00 Pure hypercholesterolemia, unspecified; E78.5 Hyperlipidemia, unspecified; E11.51 Type 2 diabetes mellitus with diabetic peripheral angiopathy without gangrene; J44.9 Chronic obstructive pulmonary disease, unspecified; R74.0 Nonspecific elevation of levels of transaminase and lactic acid dehydrogenase [LDH]; K21.9 Gastro-esophageal reflux disease without esophagitis; E83.42 Hypomagnesemia; I25.5 Ischemic cardiomyopathy; Z86.73 Personal history of transient ischemic attack (TIA), and cerebral infarction without residual deficits; Z95.5 Presence of coronary angioplasty implant and graft; Z87.891 Personal history of nicotine dependence; Z95.1 Presence of aortocoronary bypass graft; Z79.899 Other long term (current) drug therapy; Z88.8 Allergy status to other drugs, medicaments and biological substances; Z79.82 Long term (current) use of aspirin; Z68.31 Body mass index [BMI] 31.0-31.9, adult
CPT/HCPCS: 36415; 36569; 71045; 71250; 76700; 76937; 77001; 78582; 80048; 80053; 80061; 80305; 81003; 82550; 82553; 82607; 82728; 82746; 82962; 83540; 83550; 83735; 83880; 84439; 84443; 84481; 84484; 85025; 85379; 86705; 86709; 86803; 87086; 87340; 93005; 93970; 94640; 97110; 97116; 97162; A9558; C1725; J0456; J0696; J1650; J1815; J1940; J3475; J3490; J7030; J7050; J7060; J7608; J7620

== ENCOUNTER → 2018-02-13 | Outpatient (CLI) | payer MEDICARE ==
[~2018-02-13] MED LIST changes: +AMI2 MT; -APIX2.5T PO; +ASPI-1159 MT; +BUME1TAB4 MT; +CARV12.545 MT; +FERR236T3 MT; -GLIM2TAB2 PO; -LIP40 PO; +LOSA50TA20 MT; -METF10004 PO; +POTA20TA82 PO; +REPA2TAB8 MT; -ZOLP5TAB2 PO
== END | disposition home or self-care (01) ==
LOC: RAD 09:22
PROVIDERS: ATTEND Internal Medicine Gastroenterology
DX: R10.11 Right upper quadrant pain (principal); I10 Essential (primary) hypertension
CPT/HCPCS: 78227; A9537

== ENCOUNTER 2021-02-18 17:38 | Inpatient (IN) | payer MEDICARE ==
[~2021-02-18] VITALS: Ht 180.3 cm; Wt 108.9 kg
[~2021-02-18 17:38] MED LIST changes: -ASPI-1159 MT; +ASPI-1497 MT; -BUME1TAB4 MT; +BUME1TAB8 MT; -LOSA50TA20 MT; +LOSA50TA41 MT
[2021-02-18] MEDS ORDERED: ONDANSETRON HCL 4MG/2ML INJ IV STA (18:18)
[2021-02-18] MEDS ORDERED: CLONIDINE 0.1MG TABLET PO ONE (18:30)
[2021-02-18 18:34] LABS: BASOPHILS % 0.7 % (0.0-2.0); EOSINOPHILS % 0.9 % (0.0-5.0); HEMATOCRIT. 39.2 % (42.0-52.0); HEMOGLOBIN. 13.1 g/dL (14.0-18.0); LYMPHOCYTES % 7.7 % (20.0-50.0); MEAN CORPUSCULAR HEMOGLOBIN 29.8 pg (28.0-32.0); MEAN CORPUSCULAR VOLUME 89.2 fL (80.0-94.0); MEAN PLATELET VOLUME 8.6 fl (7.4-10.4); MONOCYTES % 3.9 % (2.0-8.0); NEUTROPHILS % 86.8 % (40.0-76.0); PLATELET 244 x1000/uL (130-400); RED BLOOD CELL COUNT 4.39 mill/uL (4.7-6.1); RED CELL DISTRIBUTION WIDTH 14.1 % (11.6-14.6)
[2021-02-18 18:40] LABS: CHLORIDE 104 mEq/L (98-107)
[2021-02-18 18:44] LABS: ETHANOL BLOOD < 10 mg/dL
[2021-02-18] MEDS ORDERED: FAMOTIDINE 20MG/2ML VIAL IV ONE (18:45)
[2021-02-18] MEDS ORDERED: SODIUM CHLORIDE 0.9% 500 ML IV ONE (22:45)
[2021-02-19 00:11] LABS: CLARITY URINE CLEAR (CLEAR); COLOR URINE YELLOW (YELLOW); KETONES URINE NEGATIVE (NEGATIVE); LEUKOCYTE ESTERASE URINE NEGATIVE (NEGATIVE); NITRITE URINE NEGATIVE (NEGATIVE); OCCULT BLOOD URINE TRACE (NEGATIVE); PH URINE 5.5 (4.5-8.0); PROTEIN URINE 3+ (NEGATIVE); SPECIFIC GRAVITY URINE 1.016 (1.005-1.030); UROBILINOGEN URINE 0.2 E.U./dL (0.2-1.0)
[2021-02-19 00:49] LABS: PHENCYCLIDINE URINE SCREEN NEGATIVE (NEGATIVE)
[2021-02-19 00:50] LABS: *AMPHETAMINES SCREEN URINE NEGATIVE (NEGATIVE); *BARBITURATES SCREEN URINE NEGATIVE (NEGATIVE); *BENZODIAZEPINES SCREEN URINE NEGATIVE (NEGATIVE); *COCAINE SCREEN URINE NEGATIVE (NEGATIVE); CANNABINOID URINE SCREEN NEGATIVE (NEGATIVE)
[2021-02-19 00:51] LABS: METHADONE URINE SCREEN NEGATIVE (NEGATIVE); OPIATES URINE SCREEN NEGATIVE (NEGATIVE)
[2021-02-19 01:15] VITALS: BP 163/85
[2021-02-19] MEDS ORDERED: INSNOV SUBCUT (02:08)
[2021-02-19] MEDS ORDERED: INSU100V36 SQ (02:08)
[2021-02-19] MEDS ORDERED: EZET10TA13 PO (02:08)
[2021-02-19] MEDS ORDERED: FURO-152 PO (02:08)
[2021-02-19] MEDS ORDERED: DULA1.5P SQ (02:08)
[2021-02-19] MEDS ORDERED: METF-414 PO (02:08)
[2021-02-19] MEDS ORDERED: DEXTROSE 50% WATER 50ML SYRINGE IV PRN (02:30)
[2021-02-19] MEDS ORDERED: CLONIDINE 0.1MG TABLET PO PRN (02:30)
[2021-02-19] MEDS ORDERED: ONDANSETRON HCL 4MG/2ML INJ IV PRN (02:30)
[2021-02-19] MEDS ORDERED: ACETAMINOPHEN 325MG TABLET PO PRN (02:30)
[2021-02-19 04:00] VITALS: BP 121/56
[2021-02-19 05:17] LABS: CHLORIDE 107 mEq/L (98-107)
[2021-02-19] MEDS: SODIUM CHLORIDE 0.9% INJ 3ML FLUSH IVF SCH ×3 (06:26→21:22)
[2021-02-19] MEDS: BLOOD SUGAR DIAGNOSTIC STRIP TEST SCH ×4 (06:26→21:21)
[2021-02-19] MEDS: INSULIN LISPRO 100 UNITS/ML SUBCUT SCH ×4 (07:50→21:00)
[2021-02-19 08:00] VITALS: BP 132/67
[2021-02-19] MEDS: FERROUS SULFATE 325MG TABLET PO SCH (08:56)
[2021-02-19] MEDS: AMLODIPINE 10MG TABLET PO SCH (08:57)
[2021-02-19] MEDS: METFORMIN HCL 500MG TABLET PO SCH ×2 (08:57→18:18)
[2021-02-19] MEDS: EZETIMIBE 10MG TABLET PO SCH (08:57)
[2021-02-19] MEDS: ASPIRIN 81MG EC TABLET PO SCH (08:57)
[2021-02-19] MEDS ORDERED: LOSARTAN POTASSIUM 50 MG TABLET PO SCH (09:00)
[2021-02-19 11:02] LABS: HEMATOCRIT. 37.1 % (42.0-52.0); HEMOGLOBIN. 12.6 g/dL (14.0-18.0); MEAN CORPUSCULAR HEMOGLOBIN 29.9 pg (28.0-32.0); MEAN PLATELET VOLUME 9.7 fl (7.4-10.4); PLATELET 174 x1000/uL (130-400); RED BLOOD CELL COUNT 4.22 mill/uL (4.7-6.1); RED CELL DISTRIBUTION WIDTH 14.1 % (11.6-14.6)
[2021-02-19] MEDS ORDERED: CLONIDINE 0.2MG TABLET PO PRN (11:20)
[2021-02-19 12:00] VITALS: BP 117/54
[2021-02-19] MEDS: INSULIN GLARGINE UD 100 UNITS/ML SYR SUBCUT SCH (13:16)
[2021-02-19 16:00] VITALS: BP 144/86
[2021-02-19 20:00] VITALS: BP 139/55
[2021-02-19] MEDS: FAMOTIDINE 20MG TABLET PO SCH (21:20)
[2021-02-20 00:12] VITALS: BP 115/52
[2021-02-20 04:00] VITALS: BP 117/59
[2021-02-20] MEDS: SODIUM CHLORIDE 0.9% INJ 3ML FLUSH IVF SCH ×3 (05:12→20:07)
[2021-02-20 06:19] LABS: CHLORIDE 108 mEq/L (98-107)
[2021-02-20 06:38] LABS: BASOPHILS % 0.8 % (0.0-2.0); EOSINOPHILS % 4.2 % (0.0-5.0); HEMATOCRIT. 36.4 % (42.0-52.0); LYMPHOCYTES % 24.7 % (20.0-50.0); MEAN CORPUSCULAR HEMOGLOBIN 29.1 pg (28.0-32.0); MEAN CORPUSCULAR VOLUME 88.3 fL (80.0-94.0); MEAN PLATELET VOLUME 9.2 fl (7.4-10.4); MONOCYTES % 7.7 % (2.0-8.0); NEUTROPHILS % 62.6 % (40.0-76.0); PLATELET 208 x1000/uL (130-400); RED BLOOD CELL COUNT 4.12 mill/uL (4.7-6.1); RED CELL DISTRIBUTION WIDTH 13.9 % (11.6-14.6)
[2021-02-20] MEDS: INSULIN LISPRO 100 UNITS/ML SUBCUT SCH ×4 (07:31→20:07)
[2021-02-20] MEDS: BLOOD SUGAR DIAGNOSTIC STRIP TEST SCH ×4 (07:31→20:07)
[2021-02-20 08:08] VITALS: BP 140/67
[2021-02-20] MEDS: ASPIRIN 81MG EC TABLET PO SCH (08:55)
[2021-02-20] MEDS: METFORMIN HCL 500MG TABLET PO SCH (08:55)
[2021-02-20] MEDS: EZETIMIBE 10MG TABLET PO SCH (08:55)
[2021-02-20] MEDS: AMLODIPINE 10MG TABLET PO SCH (08:55)
[2021-02-20] MEDS: FERROUS SULFATE 325MG TABLET PO SCH (08:55)
[2021-02-20] MEDS: INSULIN GLARGINE UD 100 UNITS/ML SYR SUBCUT SCH (10:41)
[2021-02-20 16:14] VITALS: BP 140/59
[2021-02-20 20:00] VITALS: BP 130/64
[2021-02-20] MEDS: FAMOTIDINE 20MG TABLET PO SCH (20:06)
[2021-02-21 00:15] VITALS: BP 150/73
[2021-02-21 04:00] VITALS: BP 130/86
[2021-02-21] MEDS: SODIUM CHLORIDE 0.9% INJ 3ML FLUSH IVF SCH (05:59)
[2021-02-21 06:50] LABS: CHLORIDE 109 mEq/L (98-107)
[2021-02-21] MEDS: INSULIN LISPRO 100 UNITS/ML SUBCUT SCH (07:32)
[2021-02-21] MEDS: BLOOD SUGAR DIAGNOSTIC STRIP TEST SCH (07:32)
[2021-02-21 08:00] VITALS: BP 150/84
[2021-02-21] MEDS: EZETIMIBE 10MG TABLET PO SCH (09:09)
[2021-02-21] MEDS: ASPIRIN 81MG EC TABLET PO SCH (09:10)
[2021-02-21] MEDS: AMLODIPINE 10MG TABLET PO SCH (09:10)
[2021-02-21] MEDS: FERROUS SULFATE 325MG TABLET PO SCH (09:10)
[2021-02-21] MEDS: INSULIN GLARGINE UD 100 UNITS/ML SYR SUBCUT SCH (09:12)
[2021-02-21 10:51] VITALS: BP 150/78
[2021-02-21] MEDS ORDERED: LOSARTAN POTASSIUM 50 MG TABLET PO SCH (11:00)
== END 2021-02-21 12:54 | disposition home health service (06) | DRG 73 ==
LOC: ER 17:38 → EDBEDREQ 18:26 → EDBEDREQTM 20:17 → ENRESERV 23:58 → 6WST 02-19 00:09
PROVIDERS: ADMIT Family Medicine Adult Medicine; ATTEND Family Medicine Adult Medicine
DX: G90.8 Other disorders of autonomic nervous system (principal); N17.0 Acute kidney failure with tubular necrosis; I16.0 Hypertensive urgency; I25.10 Atherosclerotic heart disease of native coronary artery without angina pectoris; D50.9 Iron deficiency anemia, unspecified; D72.829 Elevated white blood cell count, unspecified; E11.51 Type 2 diabetes mellitus with diabetic peripheral angiopathy without gangrene; E66.9 Obesity, unspecified; E78.00 Pure hypercholesterolemia, unspecified; E78.5 Hyperlipidemia, unspecified; G47.33 Obstructive sleep apnea (adult) (pediatric); I10 Essential (primary) hypertension; I45.10 Unspecified right bundle-branch block; I48.0 Paroxysmal atrial fibrillation; Z79.4 Long term (current) use of insulin; Z82.49 Family history of ischemic heart disease and other diseases of the circulatory system; Z86.73 Personal history of transient ischemic attack (TIA), and cerebral infarction without residual deficits; Z87.891 Personal history of nicotine dependence; Z95.1 Presence of aortocoronary bypass graft; Z79.82 Long term (current) use of aspirin; Z79.899 Other long term (current) drug therapy; Z68.33 Body mass index [BMI] 33.0-33.9, adult
CPT/HCPCS: 36415; 71045; 76705; 80048; 80053; 80305; 80320; 81003; 82962; 83036; 83735; 83880; 84484; 85025; 85379; 93005; 93306; 93880; 93970; 99291; J1815; J2405; J3490; J7040; G0480

== ENCOUNTER 2024-04-20 15:12 | Emergency (ER) | payer MEDICARE ==
[~2024-04-20] VITALS: Ht 182.9 cm; Wt 95.0 kg
[~2024-04-20 15:12] MED LIST changes: -AMI2 MT; -BUME1TAB8 MT; -CARV12.545 MT; -CARV12.545 PO; +DULA1.5P SQ; +EZET10TA81 PO; +FURO-152 PO; +INSNOV SUBCUT; +INSU100V36 SQ; +METF-414 PO; -POTA20TA82 PO; -REPA2TAB8 MT
[2024-04-20 15:17] VITALS: O2SAT 99
[2024-04-20 15:44] VITALS: BP 147/76; PULSE 98; RESP 18; TEMP 98.5; O2SAT 100
[2024-04-20 16:16] LABS: EOSINOPHILS % 1.1 % (0.0-5.0); HEMATOCRIT. 35.8 % (42.0-52.0); HEMOGLOBIN. 11.7 g/dL (14.0-18.0); LYMPHOCYTES % 13.2 % (20.0-50.0); MEAN CORPUSCULAR HEMOGLOBIN 30.4 pg (28.0-32.0); MEAN CORPUSCULAR HGB CONC 32.7 g/dL (31.0-37.0); MEAN CORPUSCULAR VOLUME 92.9 fL (80.0-94.0); MEAN PLATELET VOLUME 7.5 fl (7.4-10.4); MONOCYTES % 6.1 % (2.0-8.0); NEUTROPHILS % 78.6 % (40.0-76.0); PLATELET 313 x1000/uL (130-400); RED BLOOD CELL COUNT 3.85 mill/uL (4.7-6.1); RED CELL DISTRIBUTION WIDTH 14.9 % (11.6-14.6); WHITE BLOOD COUNT 7.7 x1000/uL (4.5-11.0)
[2024-04-20 16:19] LABS: CHLORIDE 106 mEq/L (98-107); POTASSIUM 4.4 mEq/L (3.5-5.1); SODIUM 142 mEq/L (136-145)
[2024-04-20 16:20] LABS: CALCIUM 10.1 mg/dL (8.7-10.4); CARBON DIOXIDE 29 mEq/L (21-32)
[2024-04-20 16:25] LABS: GLUCOSE 128 mg/dL (70-105); UREA NITROGEN BLOOD 16 mg/dL (9-23)
[2024-04-20] MEDS ORDERED: IBUP-2029 MT (17:23)
[2024-04-20] MEDS ORDERED: T3 PO (17:23)
== END 2024-04-20 17:45 | disposition home or self-care (01) ==
LOC: ER 15:12
DX: M54.50 Low back pain, unspecified (principal); E11.9 Type 2 diabetes mellitus without complications; E78.00 Pure hypercholesterolemia, unspecified; I10 Essential (primary) hypertension; I25.2 Old myocardial infarction; Z79.899 Other long term (current) drug therapy; Z95.1 Presence of aortocoronary bypass graft
CPT/HCPCS: 36415; 80048; 85025; 93970; 99284

== ENCOUNTER 2024-11-25 21:29 | Inpatient (IN) | payer MEDICARE ==
[~2024-11-25] VITALS: Ht 180.3 cm; Wt 81.6 kg
[~2024-11-25 21:29] MED LIST changes: +AMLO2.5T45 PO; +APIX5TAB PO; +ATOR-2 PO; +ATOR40TA70 PO; +DANT50CA PO; +DULO20CA18 PO; +GABA-1180 PO; +HYDR12.54 PO; +IBUP-2029 MT; +METF-416 PO; +METO-396 PO; +PANT40TA51 PO; +T3 PO; +TAMS-54 PO
[2024-11-25 22:50] LABS: BASOPHILS % 0.8 % (0.0-2.0); EOSINOPHILS % 1.5 % (0.0-5.0); HEMATOCRIT. 31.5 % (42.0-52.0); HEMOGLOBIN. 9.9 g/dL (14.0-18.0); LYMPHOCYTES % 8.8 % (20.0-50.0); MEAN CORPUSCULAR HEMOGLOBIN 27.5 pg (28.0-32.0); MEAN CORPUSCULAR HGB CONC 31.5 g/dL (31.0-37.0); MEAN CORPUSCULAR VOLUME 87.2 fL (80.0-94.0); MEAN PLATELET VOLUME 8.3 fl (7.4-10.4); MONOCYTES % 6.8 % (2.0-8.0); NEUTROPHILS % 82.1 % (40.0-76.0); PLATELET 203 x1000/uL (130-400); RED BLOOD CELL COUNT 3.62 mill/uL (4.7-6.1); RED CELL DISTRIBUTION WIDTH 16.6 % (11.6-14.6); WHITE BLOOD COUNT 6.8 x1000/uL (4.5-11.0)
[2024-11-25 22:56] LABS: CHLORIDE 107 mEq/L (98-107); POTASSIUM 4.4 mEq/L (3.5-5.1); SODIUM 141 mEq/L (136-145)
[2024-11-25 22:58] LABS: CALCIUM 9.6 mg/dL (8.7-10.4); CARBON DIOXIDE 25 mEq/L (21-32)
[2024-11-25 23:00] LABS: PROTHROMBIN TIME 10.8 sec (9.6-11.0)
[2024-11-25 23:03] LABS: CREATININE 1.3 mg/dL (0.6-1.3); GLUCOSE 189 mg/dL (70-105); UREA NITROGEN BLOOD 24 mg/dL (9-23)
[2024-11-25 23:04] LABS: TROPONIN I HIGH SENSITIVITY 18 ng/L (3.0-53)
[2024-11-25 23:05] LABS: ALANINE AMINOTRANSFERASE 9 IU/L (10-49); ALBUMIN 4.2 g/dL (3.2-4.8); AMMONIA < 17 uMol/L (<32); ASPARTATE AMINOTRANSFERASE 11 IU/L (<34); BILIRUBIN DIRECT < 0.1 mg/dL (<=3.0); BILIRUBIN TOTAL 0.2 mg/dL (0.1-1.0); PROTEIN TOTAL 7.5 g/dL (6.0-8.3)
[2024-11-26] VITALS (8 sets, daily range): BP systolic 131–177; BP diastolic 48–117; PULSE 65–90; RESP 18–19; TEMP 36.2–37; O2SAT 97–100
[2024-11-26] MEDS: HYDRALAZINE 20MG/ML VIAL IV SCH (01:58)
[2024-11-26] MEDS ORDERED: DEXTROSE 50% WATER 50ML SYRINGE IV PRN (04:45)
[2024-11-26] MEDS: AMLODIPINE 10MG TABLET PO SCH (05:59)
[2024-11-26] MEDS: BLOOD SUGAR DIAGNOSTIC STRIP TEST SCH (07:20)
[2024-11-26] MEDS: INSULIN LISPRO 100 UNITS/ML SUBCUT SCH (07:50)
[2024-11-26] MEDS: LOSARTAN 50 MG TABLET PO SCH (08:53)
[2024-11-26] MEDS: ASPIRIN 81MG TABLET PO SCH (08:53)
[2024-11-26 11:12] LABS: BASOPHILS % 0.5 % (0.0-2.0); EOSINOPHILS % 0.7 % (0.0-5.0); HEMATOCRIT. 31.7 % (42.0-52.0); LYMPHOCYTES % 9.4 % (20.0-50.0); MEAN CORPUSCULAR HEMOGLOBIN 27.1 pg (28.0-32.0); MEAN CORPUSCULAR HGB CONC 31.5 g/dL (31.0-37.0); MEAN PLATELET VOLUME 8.6 fl (7.4-10.4); MONOCYTES % 5.3 % (2.0-8.0); NEUTROPHILS % 84.1 % (40.0-76.0); PLATELET 183 x1000/uL (130-400); RED BLOOD CELL COUNT 3.69 mill/uL (4.7-6.1); RED CELL DISTRIBUTION WIDTH 16.6 % (11.6-14.6); WHITE BLOOD COUNT 7.8 x1000/uL (4.5-11.0)
[2024-11-26 11:41] LABS: CARBON DIOXIDE 28 mEq/L (21-32); CHLORIDE 107 mEq/L (98-107); POTASSIUM 4.8 mEq/L (3.5-5.1); SODIUM 146 mEq/L (136-145)
[2024-11-26 11:42] LABS: CALCIUM 9.6 mg/dL (8.7-10.4)
[2024-11-26 11:47] LABS: CREATININE 0.9 mg/dL (0.6-1.3); GLUCOSE 130 mg/dL (70-105); TRIGLYCERIDE 97 mg/dL (0-150); UREA NITROGEN BLOOD 19 mg/dL (9-23)
[2024-11-26 11:48] LABS: CHOLESTEROL 132 mg/dL (<200); LDL CHOLESTEROL 66 mg/dL (5-100)
[2024-11-26 11:49] LABS: HDL CHOLESTEROL 44 mg/dL (>55)
[2024-11-26] MEDS ORDERED: NALOXONE HCL 0.4MG/ML VIAL IV PRN (12:00)
[2024-11-26] MEDS ORDERED: HYDROCODONE/ACETAMINOPHEN 10/325MG TABLET PO PRN (12:00)
[2024-11-26 18:46] LABS: COLOR URINE YELLOW (YELLOW)
[2024-11-26 18:47] LABS: CLARITY URINE CLOUDY (CLEAR); GLUCOSE URINE NEGATIVE (NEGATIVE); KETONES URINE NEGATIVE (NEGATIVE); LEUKOCYTE ESTERASE URINE TRACE (NEGATIVE); NITRITE URINE NEGATIVE (NEGATIVE); OCCULT BLOOD URINE 1+ (NEGATIVE); PROTEIN URINE 3+ (NEGATIVE); SPECIFIC GRAVITY URINE 1.015 (1.005-1.030); UROBILINOGEN URINE 0.2 E.U./dL (0.2-1.0)
[2024-11-26 19:02] LABS: BACTERIA URINE 4+; SQUAMOUS EPITHELIAL CELL URINE RARE /lpf (RARE/1+)
[2024-11-26] MEDS: ATORVASTATIN CALCIUM 40MG TABLET PO SCH (21:18)
[2024-11-26] MEDS: RISPERIDONE 0.5MG TABLET PO SCH (21:19)
[2024-11-27] VITALS: BP 149/53; PULSE 85; RESP 18; TEMP 36.6; O2SAT 98
[2024-11-27 04:00] VITALS: BP 140/67; PULSE 88; RESP 18; TEMP 36.6; O2SAT 100
[2024-11-27 08:00] VITALS: BP 151/72; PULSE 90; RESP 17; TEMP 36.4; O2SAT 97
[2024-11-27 12:00] VITALS: BP 143/63; PULSE 61; RESP 18; TEMP 36.5; O2SAT 99
[2024-11-27] MEDS: CEFTRIAXONE 1GM/50ML 50 ML IV SCH (12:00)
[2024-11-27] MEDS: FERROUS SULFATE 325MG TABLET PO SCH (13:42)
[2024-11-27] MEDS: APIXABAN 5 MG TABLET PO SCH (13:42)
[2024-11-27 16:00] VITALS: BP 113/57; PULSE 85; RESP 17; TEMP 36.6; O2SAT 96
[2024-11-27 20:00] VITALS: BP 170/73; PULSE 99; RESP 18; TEMP 36.6; O2SAT 100
[2024-11-27] MEDS: METOPROLOL TARTRATE 25MG TABLET PO SCH (20:33)
[2024-11-27] MEDS: ZOLPIDEM TARTRATE 5MG TABLET PO PRN (22:24)
[2024-11-28] VITALS: BP 137/78; PULSE 127; RESP 19; TEMP 36.9; O2SAT 99
[2024-11-28 04:00] VITALS: BP 144/127; PULSE 100; RESP 18; TEMP 36.6; O2SAT 98
[2024-11-28 08:00] VITALS: BP 123/70; PULSE 109; RESP 18; TEMP 36.4; O2SAT 99
[2024-11-28] MEDS ORDERED: LEVO-65 MT (08:36)
[2024-11-28] MEDS ORDERED: RISP05 MT (08:36)
[2024-11-28] MEDS ORDERED: ENOXAPARIN 40MG/0.4ML SYR SUBCUT SCH (09:00)
[2024-11-28] MEDS: LORAZEPAM 2MG/ML UD SYRINGE IV PRN (10:39)
[2024-11-28 12:00] VITALS: BP 177/82; PULSE 93; RESP 18; TEMP 36.4; O2SAT 99
[2024-11-28 16:00] VITALS: BP 116/54; PULSE 86; RESP 20; TEMP 36.3; O2SAT 97
[2024-11-28] MEDS: DIPHENHYDRAMINE 50MG/ML VIAL IV SCH (16:00)
[2024-11-28] MEDS: NALOXONE HCL 0.4MG/ML 1ML VIAL IV SCH (16:16)
[2024-11-28 20:00] VITALS: BP 132/56; PULSE 82; RESP 19; TEMP 36.4; O2SAT 98
[2024-11-28 22:22] LABS: T4 FREE 1.19 ng/dL (0.89-1.76)
[2024-11-28 22:23] LABS: THYROID STIMULATING HORMONE 3.26 uIU/mL (0.55-4.78); VITAMIN B12 SERUM 455 pg/mL (211-911)
[2024-11-29] VITALS: BP 112/38; PULSE 89; RESP 19; TEMP 36.3; O2SAT 97
[2024-11-29] MEDS: BENZTROPINE MESYLATE 0.5MG TABLET PO SCH (00:01)
[2024-11-29 04:00] VITALS: BP 110/48; PULSE 75; RESP 19; TEMP 36.5; O2SAT 95
[2024-11-29 08:00] VITALS: BP 107/45; PULSE 84; RESP 18; TEMP 36.6; O2SAT 98
[2024-11-29 12:00] VITALS: BP 125/56; PULSE 86; RESP 18; TEMP 37; O2SAT 98
[2024-11-29 16:00] VITALS: BP 114/50; PULSE 88; RESP 8; TEMP 37; O2SAT 98
[2024-11-29 20:00] VITALS: BP 115/42; PULSE 84; RESP 19; TEMP 36.7; O2SAT 96
[2024-11-30] VITALS: BP 101/45; PULSE 70; RESP 18; TEMP 36.7; O2SAT 98
[2024-11-30 04:00] VITALS: BP 124/68; PULSE 87; RESP 19; TEMP 36.3; O2SAT 99
[2024-11-30 08:00] VITALS: BP 121/60; PULSE 91; RESP 18; TEMP 36.6; O2SAT 99
[2024-11-30] MEDS: AMLODIPINE 5MG TABLET PO SCH (09:06)
[2024-11-30 12:00] VITALS: BP 108/42; PULSE 62; RESP 18; TEMP 36.4; O2SAT 100
[2024-11-30 12:18] VITALS: BP 122/78; PULSE 78; TEMP 98; O2SAT 99
== END 2024-11-30 14:00 | disposition home health service (06) | DRG 690 ==
LOC: ER 21:29 → 6EST 11-26 00:03 → EDBEDREQ 11-26 00:15 → EDBEDREQTM 11-26 00:15 → ENRESERV 11-26 00:35
PROVIDERS: ADMIT Internal Medicine; ATTEND Internal Medicine
PROC: GZ56ZZZ Individual Psychotherapy, Supportive (ICD-10-PCS; principal; 2024-11-26)
DX: N39.0 Urinary tract infection, site not specified (principal); I69.354 Hemiplegia and hemiparesis following cerebral infarction affecting left non-dominant side; F03.911 Unspecified dementia, unspecified severity, with agitation; F05 Delirium due to known physiological condition; I10 Essential (primary) hypertension; D50.9 Iron deficiency anemia, unspecified; G25.5 Other chorea; I25.10 Atherosclerotic heart disease of native coronary artery without angina pectoris; E78.00 Pure hypercholesterolemia, unspecified; E11.51 Type 2 diabetes mellitus with diabetic peripheral angiopathy without gangrene; F29 Unspecified psychosis not due to a substance or known physiological condition; Z79.899 Other long term (current) drug therapy; Z79.01 Long term (current) use of anticoagulants; Z79.4 Long term (current) use of insulin; Z79.84 Long term (current) use of oral hypoglycemic drugs; Z95.1 Presence of aortocoronary bypass graft; Z91.041 Radiographic dye allergy status
CPT/HCPCS: 36415; 80048; 80061; 80076; 81003; 82140; 82607; 82962; 83036; 84439; 84443; 84481; 84484; 85025; 93005; 93970; 97162; 97530; 97542; 99285; A4606; A6449; J0360; J0696; J1200; J1815; J2060; J2310